=== PATIENT | female | born 1975 | race Caucasian/White ===

== ENCOUNTER 2018-01-01 19:40 | Emergency (ER) | payer OTHER ==
[~2018-01-01] VITALS: Ht 175.3 cm; Wt 88.8 kg
[2018-01-01 19:44] VITALS: TEMP 36.9; Ht 175.3 cm; Wt 88.8 kg
[2018-01-01] MEDS ORDERED: ACETAMINOPHEN 500 MG TAB PO STA (19:55)
[2018-01-01] MEDS ORDERED: AMOXICILLIN/CLAVULANATE TAB 875 MG TAB PO ONE (20:00)
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
[2018-01-01 20:30] VITALS: BP 112/67; PULSE 67; O2SAT 97
[2018-01-01] MEDS ORDERED: AMOX875T PO (20:30)
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
== END 2018-01-01 20:35 | disposition home or self-care (01) ==
LOC: MERGE 19:41 → C.EDB 19:41
DX: S69.91XA Unspecified injury of right wrist, hand and finger(s), initial encounter (principal); S40.871A Other superficial bite of right upper arm, initial encounter; M54.5 Low back pain; E03.9 Hypothyroidism, unspecified; F17.200 Nicotine dependence, unspecified, uncomplicated; W50.3XXA Accidental bite by another person, initial encounter; W19.XXXA Unspecified fall, initial encounter